=== PATIENT | male | born 1980 | race Two or more races ===

== ENCOUNTER 2020-09-21 09:03 | Outpatient (REF) | payer OTHER, SELFPAY | END 2020-09-21 09:04 | disposition home or self-care (01) | LOC: HO.LAB 09:03 | PROVIDERS: Visit Provider Internal Medicine | DX: Z20.828 Contact with and (suspected) exposure to other viral communicable diseases (principal) | CPT/HCPCS: 36415; C9803; U0003 ==

== ENCOUNTER 2020-11-15 12:55 | Emergency (ER) | payer OTHER, SELFPAY ==
[2020-11-15 14:20] VITALS: BP 142/83; PULSE 77; RESP 18; TEMP 36.4; O2SAT 98; BMI 30.9
== END 2020-11-15 20:05 | disposition left against medical advice (07) ==
LOC: HO.ED 19:56
PROVIDERS: Emergency Provider Emergency Medicine
DX: R11.2 Nausea with vomiting, unspecified (principal)
CPT/HCPCS: 99281; 99282

== ENCOUNTER 2021-01-02 09:26 | Emergency (ER) | payer OTHER, SELFPAY ==
--- NOTE | ~2021-01-02 | XR_ITS ---
EXAMINATION: XR HAND/WRIST, RIGHT CLINICAL INFORMATION: Finger laceration. COMPARISON: None. TECHNIQUE: AP, oblique, and lateral views of the right hand and wrist. FINDINGS: No acute fracture or dislocation. No joint space narrowing or marginal osteophytes. No osseous erosion. No abnormal soft tissue calcification. Soft tissue irregularity at the 2nd and 3rd digits. No radiopaque foreign body. Soft tissue swelling. XR/XR hand wrist RT IMPRESSION: Soft tissue irregularity and swelling at the 2nd and 3rd digits, likely representing soft tissue laceration. No radiopaque foreign body. No acute osseous abnormality.
[2021-01-02 09:28] VITALS: BP 116/59; PULSE 74; RESP 16; TEMP 36.6; O2SAT 100; BMI 27.8
--- NOTE | 2021-01-02 10:09 | ED.WOUNDLAC ---
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 Patient vague with history, will not specify how he got cut, states grabbed knife. Does not know what kind of knife, states did not see it, does not suspect foreign body but unsure. Tetanus out of date. Denies numbness, tingling, injury to other area <COY Trotter Last Filed: 01/02/21 11:44> Onset (ago): minute(s) <COY Trotter Last Filed: 01/02/21 11:44> Related Data Home Medications: Previous Rx's Medication Instructions Recorded jkpvrzez-ivcwtsrxsMe-qsmuvwqtF 1 appl TOPICAL BID #28 g 01/02/21 [Antibiotic (dalhm-degrp-nyrfm)] <COY Trotter Last Filed: 01/02/21 11:44> Allergies/Adverse Reactions: Allergies Allergy/AdvReac Type Severity Reaction Status Date / Time SEAFOOD Allergy Severe ANAPHYLAXIS Uncoded 06/04/20 16:12 <COY Trotter Last Filed: 01/02/21 11:44> Review of Systems Review of Systems: Constitutional: No Weight loss, No Fever, No Chills Cardiovascular: No Chest Pain, No SOB Respiratory: No Cough, No Wheezing Musculoskeletal: + joint pain Skin: +laceration Neuro: No Weakness, No Numbness, No Paresthesias <COY Trotter Last Filed: 01/02/21 11:44> Yes all other systems are reviewed and are negative <COY Trotter - Last Filed: 01/02/21 11:44> [facility] Past Medical History Attestation statement: The following information was validated with the patient. <COY Trotter - Last Filed: 01/02/21 11:44> Social History Social History: Social History Advance Directives: No Advance Directives Information Provided: No <COY Trotter - Last Filed: 01/02/21 11:44> Physical Exam Vital Signs: Vital Signs: Last Vital Signs Temp 97.8 F 01/02/21 09:28 Pulse 74 01/02/21 09:28 Resp 16 01/02/21 09:28 BP 116/59 L 01/02/21 09:28 Pulse Ox 100 01/02/21 09:28 Body Mass Index 27.8 <COY Trotter - Last Filed: 01/02/21 11:44> Vital Signs: Last Vital Signs Temp 97.8 F 01/02/21 09:28 Pulse 74 01/02/21 09:28 Resp 16 01/02/21 09:28 BP 116/59 L 01/02/21 09:28 Pulse Ox 100 01/02/21 09:28 Body Mass Index 27.8 <Christian Herrera MD - Last Filed: 01/10/21 09:29> Const: General: cooperative and healthy appearing <COY Trotter - Last Filed: 01/02/21 11:44> Orientation/consciousness: patient oriented x3 <COY Trotter - Last Filed: 01/02/21 11:44> Limitations: no limitations <COY Trotter - Last Filed: 01/02/21 11:44> HENMT: Head: Yes normal to inspection <COY Trotter - Last Filed: 01/02/21 11:44> Ears: hearing grossly normal bilaterally <COY Trotter - Last Filed: 01/02/21 11:44> General nose exam: Normal external nose present <COY Trotter - Last Filed: 01/02/21 11:44> Face and sinus: Yes normal facial exam <COY Trotter - Last Filed: 01/02/21 11:44> Eyes: General: appearance normal, both eyes and all related structures <COY Trotter - Last Filed: 01/02/21 11:44> EOM: EOMs intact bilaterally <COY Trotter - Last Filed: 01/02/21 11:44> Neck: Neck: Yes normal visual inspection and Yes no meningeal signs <COY Trotter - Last Filed: 01/02/21 11:44> Resp: Effort & Inspection: normal respiratory effort <COY Trotter - Last Filed: 01/02/21 11:44> Cardio: Rate: regular rate <COY Trotter - Last Filed: 01/02/21 11:44> Peripheral pulses: radial pulses present <COY Trotter - Last Filed: 01/02/21 11:44> Skin: Rashes: no rashes <COY Trotter - Last Filed: 01/02/21 11:44> Neuro: General: patient oriented x3, tone normal, moves all extremities and no meningeal signs <COY Trotter - Last Filed: 01/02/21 11:44> Extrem: Other: 4 cm irregular half [place] deep laceration noted to right 1st digit at MCP. Underlying structures appear intact. FROM digit/hand intact. NV intact. Finger to thumb opposition intact. sensation intact to light touch <COY Trotter - Last Filed: 01/02/21 11:44> Course Course Course Narrative: I have reviewed the chart <Christian Herrera MD - Last Filed: 01/10/21 09:29> Procedures Laceration Laceration 1: Site: hand <COY Trotter - Last Filed: 01/02/21 11:44> Side (If applicable): right <COY Trotter - Last Filed: 01/02/21 11:44> Size (cm): 4 <COY Trotter - Last Filed: 01/02/21 11:44> Description: flap and irregular <COY Trotter - Last Filed: 01/02/21 11:44> Local Anesthetic: lidocaine 1% <COY Trotter - Last Filed: 01/02/21 11:44> Amount of anesthesia used (mL): 4 <COY Trotter - Last Filed: 01/02/21 11:44> Pre-repair: wound explored, irrigated extensively and deep structures intact <COY Trotter Last Filed: 01/02/21 11:44> Skin layer closed with: nylon <COY Trotter Last Filed: 01/02/21 11:44> Size (cm): 4-0 <COY Trotter Last Filed: 01/02/21 11:44> Number of sutures: 8 <COY Trotter Last Filed: 01/02/21 11:44> Technique: simple, interrupted <COY Trotter Last Filed: 01/02/21 11:44> MDM - Wound/Laceration MDM Narrative Medical decision making narrative: On exam VSS, well-appearing, NAD, physical exam as above. Will update tetanus, obtain x-ray, and repair laceration <COY Trotter Last Filed: 01/02/21 11:44> Medical Records Attestation: I reviewed the patient's medical records. <COY Trotter Last Filed: 01/02/21 11:44> Discharge Plan Discharge Clinical Impression: Hand laceration <COY Trotter Last Filed: 01/02/21 11:44> Patient Disposition: Home, Self-Care <COY Trotter Last Filed: 01/02/21 11:44> Instructions: Laceration (ED) <COY Trotter Last Filed: 01/02/21 11:44> Additional Instructions: You need to return to any emergency department or urgent care in 7-10 days to have her stitches taken out Apply bacitracin or Neosporin at home Do not care wet for 24 hours, after 24 hours you may get wet, but do not soak, only pat dry, do not scrub If area begins to look infected, is red, there is drainage, streaking, or you have fever return to the ED Follow-up with hand specialist <COY Trotter Last Filed: 01/02/21 11:44> Prescriptions: New Antibiotic (ztucl-onuea-ypnjn) 3.5mg-400 unit- 5,000 unit/gram ointment 1 appl topical BID Qty: 28 RF: 0 <COY Trotter Last Filed: 01/02/21 11:44> Referrals: ED Physician,Generic [Physician] - 1 week (Return to any emergency department or urgent care in 7-10 days to have stitches taken out) Smiley Vega MD [Physician] - 10 days <COY Trotter - Last Filed: 01/02/21 11:44> Discharge Date/Time: 01/02/21 11:52 <COY Trotter - Last Filed: 01/02/21 11:44>
[2021-01-02] MEDS: Diphth,Pertus(ACell),Tet Adult 0.5 ML SYRINGE IM (10:25)
[2021-01-02] MEDS: Lidocaine HCl 1 % MPF 5 ML VIAL SUBCUT (10:26)
--- NOTE | 2021-01-02 11:06 | PC.NURSE ---
wound to r hand, bleeding is controlled. clean dry dressing intact on wound. c/o pain, md is aware. awaiting sutures by provider.
== END 2021-01-02 11:52 | disposition home or self-care (01) ==
PROVIDERS: Emergency Provider Emergency Medicine
DX: S61.210A Laceration without foreign body of right index finger without damage to nail, initial encounter (principal); W26.0XXA Contact with knife, initial encounter; Y93.9 Activity, unspecified; Y92.511 Restaurant or cafe as the place of occurrence of the external cause; Y99.0 Civilian activity done for income or pay
CPT/HCPCS: 12002; 73110; 73130; 90471; 90715; 99282; 99284

== ENCOUNTER 2021-02-15 19:07 | Emergency (ER) | payer OTHER, SELFPAY ==
[2021-02-15 20:31] VITALS: BP 130/73; PULSE 68; RESP 18; TEMP 36.6; O2SAT 98; BMI 28.2
[2021-02-15 22:26] VITALS: BP 123/49; PULSE 57; RESP 16; TEMP 36.3; O2SAT 97
--- NOTE | 2021-02-15 22:32 | ED.SKABFB ---
HPI - Skin/Abscess/Foreign Bdy General Chief complaint: Skin/Abscess/Foreign Body Stated complaint: red rash Time Seen by Provider: 02/15/21 22:32 Source: patient Mode of arrival: ambulatory Limitations: no limitations History of Present Illness HPI narrative: Patient noticed small reddish zully on both lower extremity likely insect bite turning into pustules no fever no leg swelling Related Data Previous Rx's Medication Instructions Recorded fwoengzs-nmlmzawbkNx-enlnsguhB 1 appl TOPICAL BID #28 g 01/02/21 [Antibiotic (zniqo-diuta-tvcfp)] cephalexin 500 mg PO QID 10 Days #40 cap 02/15/21 sulfamethoxazole-trimethoprim 1 tab PO BID #20 tab 02/15/21 [Bactrim DS] Allergies Allergy/AdvReac Type Severity Reaction Status Date / Time SEAFOOD Allergy Severe ANAPHYLAXIS Uncoded 02/15/21 20:31 Review of Systems Review of Systems: Yes all other systems are reviewed and are negative PMFSH Past Medical History Medical History HTN (hypertension) Social History Social History Advance Directives: No Physical Exam Vital Signs: Vital Signs: Last Vital Signs Temp 97.4 F 02/15/21 22:26 Pulse 57 02/15/21 22:26 Resp 16 02/15/21 22:26 BP 123/49 L 02/15/21 22:26 Pulse Ox 97 02/15/21 22:26 Body Mass Index 28.2 Const: General: no acute distress Extrem: Upper/lower leg/hip images: 1. Multiple small pustules 2. Multiple insect bites without any pustules MDM - Skin/Abscess/Foreign Bdy MDM Narrative Medical decision making narrative: Patient with folliculitis ,pustule ruptured by sterile needle and sample taken for culture will give him Bactrim and Keflex Discharge Plan Discharge Clinical Impression: Folliculitis Insect bites Qualifiers: Encounter type: initial encounter Site of insect bite: lower leg Laterality: right Qualified Code(s): S80.861A - Insect bite (nonvenomous), right lower leg, initial encounter Patient Disposition: Home, Self-Care Instructions: Folliculitis (ED) Additional Instructions: Take antibiotic as advised Follow with PCP if not better Prescriptions: New sulfamethoxazole-trimethoprim [Bactrim DS] 800-160 mg tablet 1 tab PO BID Qty: 20 RF: 0 cephalexin 500 mg capsule 500 mg PO QID 10 Days Qty: 40 RF: 0 No Action Antibiotic (bhjdt-xvmjn-dmyci) 3.5mg-400 unit- 5,000 unit/gram ointment 1 appl topical BID Qty: 28 RF: 0
[2021-02-15] MEDS: cephALEXin 500 MG CAPSULE PO (23:04)
== END 2021-02-15 23:17 | disposition home or self-care (01) ==
PROVIDERS: Emergency Provider Internal Medicine
DX: L73.9 Follicular disorder, unspecified (principal); L02.415 Cutaneous abscess of right lower limb; L02.416 Cutaneous abscess of left lower limb; Z79.899 Other long term (current) drug therapy
CPT/HCPCS: 87071; 87077; 87186; 87205; 99284

== ENCOUNTER 2021-10-22 15:41 | Outpatient (REF) | payer OTHER, SELFPAY ==
[2021-10-22 16:05] LABS: COVID-19 Test Negative (Negative); IDNOW Serial# 16C4AD1C
== END 2021-10-22 15:42 | disposition home or self-care (01) ==
LOC: HO.LAB 15:41
PROVIDERS: Visit Provider Internal Medicine
DX: Z20.822 Contact with and (suspected) exposure to COVID-19 (principal)
CPT/HCPCS: 87635; C9803

== ENCOUNTER 2021-11-29 12:23 | Outpatient (REF) | payer OTHER, SELFPAY ==
[2021-11-29 12:52] LABS: COVID-19 Test Negative (Negative); IDNOW Serial# 08D9AD1C
== END 2021-11-29 12:24 | disposition home or self-care (01) ==
LOC: HO.LAB 12:23
PROVIDERS: Visit Provider Internal Medicine
DX: Z20.822 Contact with and (suspected) exposure to COVID-19 (principal)
CPT/HCPCS: 87635; C9803

== ENCOUNTER 2022-01-03 06:59 | Emergency (ER) | payer OTHER, SELFPAY ==
--- NOTE | 2022-01-03 07:14 | ED.PSYCH ---
HPI - Psych General Chief Complaint: Psychiatric Symptoms Stated Complaint: CRISIS Time Seen by Provider: 01/03/22 07:13 Source: patient and police Mode of arrival: EMS Limitations: no limitations History of Present Illness HPI Narrative: 41-year-old male presents to emergency department suicidal. Apparently had called last night said that he was going to jump of a bridge they were unable to locate him all night this morning the on the call from his girlfriend and again was stating that he was going to jump of bridge was suicidal. Per police he has made multiple statements in past he has constant suicidal but never goes to get help. Patient does not want to be seen patient was handcuffed and brought into the emergency department he is not under arrest he keeps telling police us that he would rather go to the police station be rested and B in the ER. He denies chest pain cough abdominal pain nausea vomiting or diarrhea. complaint: suicidal ideation Onset (ago): month(s) Duration: constant History of same: Yes Relieving factors: none Exacerbating factors: none Related Data Previous Rx's Medication Instructions Recorded neomycin-bacitracn Zn-polymyx 3.5 1 appl TOPICAL BID #28 g 01/02/21 mg-400 unit-5,000 unit/gram top oint (Antibiotic (wddzw-fybnr-bldps)) cephalexin 500 mg capsule 500 mg PO QID 10 Days #40 cap 02/15/21 sulfamethoxazole 800 1 tab PO BID #20 tab 02/15/21 mg-trimethoprim 160 mg tablet (Bactrim DS) Allergies Allergy/AdvReac Type Severity Reaction Status Date / Time SEAFOOD Allergy Severe ANAPHYLAXIS Uncoded 02/15/21 20:31 Review of Systems Review of Systems: Review of systems: General: Patient denies any fever chills recent illness or falls Musculoskeletal: Denies back pain or body aches or other injuries HEENT: denies headache, runny nose, ear pain Respiratory: denies shortness of breath, cough Cardiovascular: no chest pain or palpitations : denies dysuria, frequency Abdomen: no nausea vomiting denies abdominal pain Extremities: no swelling, no pain Skin: no diaphoresis Yes all other systems are reviewed and are negative PMFSH Past Medical History Medical History HTN (hypertension) Physical Exam Vital Signs: Vital Signs: Last Vital Signs Temp 97.8 F 01/03/22 07:30 Pulse 55 01/03/22 07:30 Resp 18 01/03/22 07:30 BP 118/65 01/03/22 07:30 Pulse Ox 98 01/03/22 07:30 BMI result Body Mass Index 28.7 General: Well-appearing well-nourished in no signs of distress HEENT: Normocephalic atraumatic Neck: No signs of JVD, no masses no tenderness or lymphadenopathy Cardiovascular: Regular rate and rhythm Respiratory: Clear to auscultation bilaterally Abdomen: Soft nontender no masses . Extremities: Normal pedal pulses no signs of edema Skin: Dry warm no rashes Back: No tenderness full ROM MDM - Psych MDM Narrative Medical decision making narrative: Patient's suicidal patient with be placed on suction by me or is already on a Section by police had the patient evaluated by crisis. 1006 Patient evaluated by crisis deemed safe to go home. Differential Diagnosis Differential diagnosis: Likely suicidal ideation Lab Data Labs: Lab Results 01/03/22 01/03/22 01/03/22 Range/Units 07:58 07:58 07:59 Urine Color YELLOW Urine Appearance CLEAR Urine pH 6.5 (5.0-8.0) Ur Specific [place] 1.020 (1.005-1.025) Urine Protein TRACE (NEG-TRACE) MG/DL Urine Glucose (UA) NEG (NEG) MG/DL Urine Ketones NEG (NEG) MG/DL Urine Blood NEG (NEG) Urine Nitrite NEG (NEG) Ur Leukocyte Esterase NEG (NEG) Urine RBC 0 (0) /HPF Urine WBC 0-2 (0-4) /HPF Ur Squamous Epith Cells 1+ /LPF Ur Renal Epithelial Cell TRACE /LPF Urine Bacteria NONE /LPF Urine Mucus TRACE /LPF Urine Opiates Screen Not Detected (Not Detect) Urine Fentanyl Screen Not Detected (Not Detect) Ur Barbiturates Screen Not Detected (Not Detect) Ur Phencyclidine Scrn POSITIVE H (Not Detect) Ur Amphetamines Screen Not Detected (Not Detect) U Benzodiazepines Scrn Not Detected (Not Detect) Urine Cocaine Screen POSITIVE H (Not Detect) U Marijuana (THC) Screen POSITIVE H (Not Detect) COVID-19 (ALVIN) Negative (Negative) COVID-19 Clin Com See Note Discharge Plan Discharge Clinical Impression: Feeling suicidal Patient Disposition: Home, Self-Care Instructions: Suicide Prevention (ED) Additional Instructions: Please call to follow up. Prescriptions: No Action Antibiotic (fschd-kuafh-ygnmi) 3.5mg-400 unit- 5,000 unit/gram ointment 1 appl topical BID Qty: 28 0RF sulfamethoxazole-trimethoprim [Bactrim DS] 800-160 mg tablet 1 tab PO BID Qty: 20 0RF cephalexin 500 mg capsule 500 mg PO QID 10 Days Qty: 40 0RF
[2022-01-03 07:30] VITALS: BP 118/65; PULSE 55; RESP 18; TEMP 36.6; O2SAT 98; BMI 28.7
--- NOTE | 2022-01-03 07:46 | PC.NURSE ---
pt is a/o x 3 no sob/saida noted skin pink warm dry speaks in full sentences. pt is sect 12. pt is calm at this time.
--- NOTE | 2022-01-03 07:52 | MHC.CARE ---
Smart sheet submitted
[2022-01-03 08:15] LABS: Appearance Urine CLEAR; Color Urine YELLOW; Glucose Urine UA NEG (NEG); Leukocyte Esterase Urine NEG (NEG); Nitrite Urine NEG (NEG); PH 6.5 (5.0-8.0); Urine Blood NEG (NEG); Urine Ketones NEG (NEG); Urine Protein TRACE MG/DL (NEG-TRACE)
[2022-01-03 08:27] LABS: COVID-19 Test Negative (Negative); IDNOW Serial# 16C4AD1C
[2022-01-03 08:28] LABS: Amphetamine Screen Urine Not Detected (Not Detect); Barbiturates, Urine Not Detected (Not Detect); Benzodiazepines Screen Urine Not Detected (Not Detect); Cannabinoid Screen Urine POSITIVE (Not Detect); Cocaine Screen Urine POSITIVE (Not Detect); Fentanyl, urine Not Detected (Not Detect); Opiate Screen Urine Not Detected (Not Detect); Phencyclidine Screen Urine POSITIVE (Not Detect)
[2022-01-03 08:36] LABS: Mucus Urine TRACE /LPF; Squamous Epithelial Cell Urine 1+ /LPF
[2022-01-03 08:37] LABS: Renal Epithelial Cells Urine TRACE /LPF
[2022-01-03 08:38] LABS: RBC Urine 0 /HPF (0); WBC Urine 0-2 /HPF (0-4)
--- NOTE | 2022-01-03 08:42 | PC.NURSE ---
pt continues to pace in hallway. calm at this time.
--- NOTE | 2022-01-03 08:48 | PC.NURSE ---
pt continues to pace the hallway, states that he is not anxious but he would like to leave. pt was updated that [facility] will evaluate in afternoon.
--- NOTE | 2022-01-03 08:55 | PC.NURSE ---
pt came up to the desk and state you guys better call the roller coaster operator because i would rather go to care home than stay here .security called to the pod. pt is calm but pacing. pt has changed is stance since security spoke with him. pt is now sitting down in hallway and is making a phone call.
--- NOTE | 2022-01-03 09:30 | PC.NURSE ---
pt seen by Jenna (care team) aware of plan of care.
--- NOTE | 2022-01-03 10:31 | PHA.MEDREC ---
Pharmacy Consult ? Medication Reconciliation Pharmacy has completed the medication reconciliation. Spoke with patient in [facility]. Pt states he is on trazodone and could not remember his other medications. He said he is on a total of 4 medications for urinary retention, depression and sleep plus a multivitamin. He has not taken his medications in about a week because he disposed of them after a fight with his girlfriend.
--- NOTE | 2022-01-03 11:00 | PC.NURSE ---
pt seen by strength and conditioning coach pt aware of plan of care.
--- NOTE | 2022-01-03 11:43 | PC.NURSE ---
after periods of being very calm pt approached the nursing station and states i would rather go out in cuffs than be here security called to the pod. pt spoke to security. pt is now pacing hallway and security is speaking with the care team (dian) in her office. pt is aware
[2022-01-03 11:49] VITALS: BP 131/53; PULSE 55; TEMP 37; O2SAT 97
--- NOTE | 2022-01-03 12:33 | MHC.CARE ---
Beginning at 0900 CARE Team met with patient in [facility], he was alert, oriented, cooperative and engaged. Stated that he and his girlfriend have been fighting, believes that she, blew things out of proportion, and that he is not suicidal and does not want to end his life. Reported that he has providers--therapist, psychiatrist and reading recovery teacher through [facility]. Patient feels that this is a waste of everyone's time and wants to be discharged, said he will go to his grandmother's house in [place] as he cannot go to his girlfriend's house where he was living. Call to patient's friend, Tushar ([phone]) for collateral, he said he knows patient well and does not believe he would ever end his life. Acknowledged that patient has been under a lot of stress after quitting his job and the relationship is a problem. Call to [facility], reported that a 911 call from a male was made at 1230am reported suicidal ideation with plan to jump from a bridge. They were unable to reach him by phone. A second call came at 6:30 am and the police went to the apartment and brought patient to the hospital. They provided name and number for patient?s girlfriend. Spoke to patient?s girlfriend, Chani Huang [phone] who stated that she has been with him for 15 years, he has been incarcerated for much of the time and outside of a controlled environment he struggles to abstain from drugs. ?She is a [employer] Trainer and well aware of how this is impacting his life and their relationship, has attempted to get a Section 35 on him but unable because she is not family. She reported that patient has court tomorrow and will almost certainly go to [facility]; she did not believe that he is suicidal but possibly avoiding responsibility. Although stated that patient wrote on his Face Book yesterday, ?Time for a swim,? and she thought that could mean he would jump from a bridge but thought he would not actually do that and that it was, ?A cry for help.? She would like him to go to detox and get help for his addiction. Noted that she will have to get a restraining order to keep him from her house, would like to be updated if patient is discharged. Patient continued to ask for discharge, stated he will not hurt himself or anyone else, will not go to his girlfriend?s house but to his grandmother?s until court tomorrow. He did not know his grandmother?s phone number but able to get his aunt?s contact information. Patient does need an inpatient psychiatric placement, declined offer of detox referrals. Spoke to patient?s aunt, Jane, who said she does not believe her nephew to be suicidal but in a toxic relationship. She confirmed that patient would be allowed to go to her mother?s house but not intermission coordinator. ?Has information about [facility] and will follow up with his outpatient providers. Left message with patient's girlfriend that he is being discharge shortly. Provider, Dr. Sifeuntes, telephone supervisor [facility] consulted and updated regarding plan of care.
== END 2022-01-03 12:24 | disposition home or self-care (01) ==
LOC: HO.ED 10:17
PROVIDERS: Emergency Provider Student in an Organized Health Care Education/Training Program
DX: R45.851 Suicidal ideations (principal); Z20.822 Contact with and (suspected) exposure to COVID-19; Z79.899 Other long term (current) drug therapy
CPT/HCPCS: 80307; 81001; 87635; 99283